=== PATIENT | female | born 1975 | race Caucasian/White ===

== ENCOUNTER 2018-03-12 13:31 | Outpatient (CLI) | payer BC | END 2018-03-12 13:32 | disposition home or self-care (01) | LOC: BICMAMMO 13:31 | PROVIDERS: ATTEND Physician Assistant Medical | DX: Z12.31 Encounter for screening mammogram for malignant neoplasm of breast (principal) | CPT/HCPCS: 77063; 77067 ==

== ENCOUNTER 2018-08-08 08:10 | Outpatient (CLI) | payer BC ==
--- NOTE | 2018-08-08 11:06 | CT ---
CERVICAL SPINE CT WITHOUT CONTRAST: 08/08/2018 HISTORY: Pain. Prior surgery. TECHNIQUE: Serial axial CT imaging at 2 mm intervals, from the skull base through the lung apices, without contr ast. Coronal and sagittal reformatted imaging obtained. FINDINGS: The imaged lung apices are unremarkable. Anterior diskectomy and fusion hardware is present at C4-C5 and C6-C7. Evaluation for central canal and/or neural foraminal stenosis is limited on routine CT. The craniocervical junction appears intact. There is degenerative change at the atlantoaxial intersp mikey. There is degenerative change at the C1-C2 articulation with subchondral sclerosis, interspace n arrowing, and osteophyte formation, left greater than right. The C1 ring and the dens appear intact. C2-C3: No osseous cause of significant central canal or neural foraminal stenosis. C3-C4: Mild left-sided facet hypertrophy and mild anterior osteophyte formation. No osseous cause o f significant central canal or neural foraminal stenosis. C4-C5: Bilateral uncovertebral osteophyte formation is noted, right greater than left. There is pro bable mild bilateral neural foraminal stenosis, on the basis of uncovertebral osteophyte formation, r ight greater than left. Intervertebral disk device is present at this level. No osseous cause of si gnificant central canal stenosis. C5-C6: Mild posterior osteophyte formation noted in the right paracentral region. Mild bilateral un covertebral osteophyte formation. No osseous cause of significant central canal or neural foraminal stenosis. Intervertebral disk device is present. C6-C7: There is disk space narrowing and sclerotic degenerative endplate change. There is mild post erior osteophyte. There is no osseous cause of significant central canal or neural foraminal stenosi s. C7-T1: No osseous cause of significant central canal or neural foraminal stenosis. There is no worrisome lytic or blastic bone lesion. No acute fracture or evidence of dislocation. N o CT evidence of hardware failure. The imaged lung apices appear unremarkable. IMPRESSION: Degenerative and postoperative changes of the cervical spine, as detailed above. POS: OFF
--- NOTE | 2018-08-08 12:51 | MRI ---
MRI CERVICAL SPINE WITH ND WITHOUT CONTRAST: Multiplanar, multisequential imaging of the cervical spine obtained. Postcontrast images were obtain ed after administration of IV MultiHance. INDICATION: Cervical radiculopathy. COMPARISON: Correlation is made to CT cervical spine performed earlier today. FINDINGS: There has been prior anterior fusion procedure. Anterior plate and screws are in place transfixing C 4, C5, and C6 with interbody implants at these levels. There is mild anterior wedging of the C4, C5, and C6 vertebrae, better appreciated on CT imaging. The plate and screws produce significant artifa ct obscuring detail on MRI. The C2 and C3 vertebrae maintain height. C7 vertebrae maintains height. MRI does confirm diffuse ed tyree within the C7 vertebra. Posterior disk bulge with spondylosis at C3-4 effaces the anterior subarachnoid space. Spondylosis a t C4-5 and C5-6 effaces the anterior subarachnoid space and abuts the cord, better appreciated on CT. There is a prominent posterior disk bulge with spondylosis at C6-7 which impinges on and mildly inden ts the anterior cord producing mild cord flattening. Mild foraminal narrowing at this C6-7 level. The cord signal is normally preserved with no evidence of myelomalacia. IMPRESSION: 1. Anterior fusion changes at C4, C5, and C6. See accompanying CT. 2. Posterior disk bulge and spondylosis is prominent at C6-7. These changes impinge on and mildly f latten the anterior cord. 3. Diffuse edema involving the C7 vertebra is confirmed on MRI. There is no evidence of enhancement or edema within the C6-C7 disk. However, osteomyelitis involving the C7 vertebra cannot be excluded based on MRI findings. Close followup recommended. POS: [facility]
[2018-08-08] MEDS ORDERED: Gadobenate Dimeglumine 529 MG/1 ML (20ML VIAL) ONE (13:34)
== END 2018-08-08 08:11 | disposition home or self-care (01) ==
LOC: BICCT 08:10
PROVIDERS: ATTEND Physician Assistant Surgical
DX: M47.22 Other spondylosis with radiculopathy, cervical region (principal); M50.123 Cervical disc disorder at C6-C7 level with radiculopathy; R60.0 Localized edema; Z98.1 Arthrodesis status
CPT/HCPCS: 72125; 72156; A9579

== ENCOUNTER 2023-09-18 07:08 | Outpatient (CLI) | payer BC | END 2023-09-18 07:09 | disposition home or self-care (01) | LOC: BICULT 07:08 | PROVIDERS: ATTEND Internal Medicine Rheumatology | DX: R79.89 Other specified abnormal findings of blood chemistry (principal) | CPT/HCPCS: 76705 ==